=== PATIENT | male | born 1995 | race Caucasian/White ===

== ENCOUNTER 2017-12-03 23:29 | Emergency (ER) | payer OTHER ==
--- NOTE | 2017-12-03 23:31 | PDOC ---
History of Present Illness - General Stated Complaint: ALLERGIC REACTION Time Seen by Provider: 12/03/17 23:31 History Source: Patient Exam Limitations: No Limitations - History of Present Illness Initial Comments: 12/03/17 23:35 This is a 22-year-old male who comes in complaining of an ALLERGIC reaction to soy. Patient went to a smoothie place and ordered a smoothie that was supposed to be sorted free however after eating it he developed hives, sensation that his throat was swelling and he came in for evaluation. Patient took 25 mg of Benadryl prior to coming in. Patient did not use his EpiPen. Patient otherwise denies any lightheadedness or weakness. Patient denies any shortness of breath nausea or vomiting. PAST MEDICAL HISTORY: no significant history PAST SURGICAL HISTORY: no significant history FAMILY HISTORY: no pertinant history SOCIAL HISTORY: Pt lives with family and is employed. MEDICATIONS: reviewed ALLERGIES: As per nursing notes Review of Systems General: No fevers or chills, no weakness, no weight loss HEENT: No change in vision. No sore throat,. No ear pain CardioVascular: No chest pain or shortness of breath Respiratory:No cough, or wheezing. Gastrointestinal: no nausea, vomitting, diarrhea or constipation, No rectal bleeding Genitourinary: No dysuria, hematuria, or frequency Musculoskeletal: No joint or muscle pain or swelling Neurologic: No headache, vertigo, dizziness or loss of consciousness Psychiatric: nor depression Skin: Hives as per history of present illness Endocrine: no increased thirst or abnormal weight change Allergic: no skin or latex allergy All other systems reviewed and normal Exam: General: Well-nourished well-developed individual, no acute distress HEENT: Throat: Normal, tonsils normal, no erythema or exudate Neck: Supple, no meningeal signs, no lymphadenopathy Eyes::Pupils equal reactive and round, extraocular motion intact Chest: Nontender to palpation Cardiac: S1-S2 normal, regular rate and rhythm, no murmurs rubs or gallops Respiratory: Lungs clear to auscultation bilateral Abdomen: Soft, nondistended, normal bowel sounds, nontender to palpation diffusely Extremities: Warm, dry, no cyanosis, clubbing, or edema Skin: No rashes Neuro: Alert and oriented x3, CN II - XII intact, nonfocal exam with normal strength, normal sensation, normal reflexes, normal gait, Psych: Normal mood and affect Medical decision making: This is a 22-year-old male who comes in with hives and an ALLERGIC reaction to soy. Patient medicated with steroids, Benadryl, fluids. We will reassess and monitor patient for change in clinical condition.. Well observed patient for 2 hours this patient remains hemodynamically stable and asymptomatic will discharge patient in 4 hours. 12/03/2017 02:00 Reevaluation Evaluation patient's symptoms have nearly resolved the redness is gone and hives have resolved. Patient has no more angioedema. Patient given prescription for Medrol Dosepak and told he can also take Benadryl. Patient will follow-up with his doctor as needed Past History - Past Medical History Allergies/Adverse Reactions: Allergies Allergy/AdvReac Type Severity Reaction Status Date / Time chicken derived Allergy Verified 12/03/17 23:49 egg Allergy Verified 12/03/17 23:49 peanut Allergy Verified 12/03/17 23:49 soy Allergy Verified 12/03/17 23:49 Home Medications: Ambulatory Orders Methylprednisolone [Medrol Dose Jacob] 4 mg PO ASDIR #21 tablet 12/04/17 Psychiatric Problems: Yes (ANXIETY/DEPRESSION) - Suicide/Smoking/Psychosocial Hx Smoking History: Current every day smoker Have you smoked in the past 12 months: No Number of Cigarettes Smoked Daily: 5 'Breaking Loose' booklet given: 01/29/16 Hx Alcohol Use: No Drug/Substance Use Hx: No Substance Use Type: None *DC/Admit/Observation/Transfer Diagnosis at time of Disposition: Allergic reaction to food Qualifiers: Encounter type: initial encounter Qualified Code(s): T78.1XXA - Other adverse food reactions, not elsewhere classified, initial encounter - Discharge Dispostion Condition at time of disposition: Fair Admit: No - Prescriptions Prescriptions: Methylprednisolone [Medrol Dose Jacob] 4 mg PO ASDIR #21 tablet - Referrals - Patient Instructions Additional Instructions: Take the Medrol Dosepak and taper as per the pack. In addition that you can take Benadryl one to 2 tablets every 4-6 hours as needed if symptoms begin to return. Return to the emergency department immediately with ANY new, persistent or worsening symptoms. Continue any medications as previously prescribed by your physician. You should follow up with your primary doctor as soon as possible regarding today's emergency department visit. . Please make sure your doctor reviews the results of your emergency evaluation. Thank you for coming to the Emergency Department today for your care. It was a pleasure to see you today. Please note that your evaluation is INCOMPLETE until you follow-up with your doctor. - Post Discharge Activity
[2017-12-03] MEDS ORDERED: SODIUM CHLORIDE 1,000 ML IV ONE (23:33)
[2017-12-03] MEDS ORDERED: DEXAMETHASONE SOD PHOSPHATE 10 MG/1 ML VIAL IVPUSH ONE (23:33)
[2017-12-03] MEDS ORDERED: DEXAMETHASONE SOD PHOSPHATE 10 MG/1 ML VIAL ONE (23:42)
[2017-12-03 23:57] VITALS: TEMP 98; BMI 28.5
[2017-12-04 01:48] VITALS: BP 136/72; PULSE 82
== END 2017-12-04 01:51 | disposition home or self-care (01) ==
LOC: FER 23:29
PROC: 3E033GC Introduction of Other Therapeutic Substance into Peripheral Vein, Percutaneous Approach (ICD-10-PCS; principal; 2017-12-03)
PROC: 3E0337Z Introduction of Electrolytic and Water Balance Substance into Peripheral Vein, Percutaneous Approach (ICD-10-PCS; 2017-12-03)
DX: T78.1XXA Other adverse food reactions, not elsewhere classified, initial encounter (principal); F41.8 Other specified anxiety disorders; F17.210 Nicotine dependence, cigarettes, uncomplicated
CPT/HCPCS: 96361; 96374; 96375; 99282-25